=== PATIENT | male | born 1995 | race Caucasian/White ===

== ENCOUNTER 2017-03-26 11:38 | Inpatient (IN) ==
[2017-03-26 12:33] LABS: MANUAL DIFF NEEDED? NO
[2017-03-26 12:37] LABS: BASO% 0.4 % (0.0-0.8); EOS# 0.05 X1000 (0.0-0.7); EOS% 0.7 % (0.0-10.0); HEMATOCRIT 44.5 % (42.0-52.0); HEMOGLOBIN 15.6 g/dL (14.0-18.0); IMM GRAN# 0.03 X1000 (0.0-0.04); IMM GRAN% 0.4 % (0.0-0.5); LYMPH# 1.41 X1000 (1.2-3.4); MCH 30.2 PG (27-31); MCHC 35.1 g/dL (33-37); MCV 86.1 FL (81-99); MONO# 0.79 X1000 (0.11-0.59); MONO% 10.6 % (1.7-9.3); MPV 10.1 FL (7.4-10.4); NEUT% 68.9 % (42.2-75.2); PLT 230 X1000 (130-400); RBC 5.17 XMIL (4.7-6.1)
[2017-03-26 12:48] LABS: URINE CULTURE NEEDED? NO; URINE MICRO REVIEW NEEDED? NO; URINE SOURCE CLEAN CATCH
[2017-03-26 12:54] LABS: BILIRUBIN URINE NEGATIVE (NEGATIVE); BLOOD URINE NEGATIVE (NEGATIVE); COLOR YELLOW; GLUCOSE URINE NEGATIVE (NEGATIVE); LEUKOCYTES URINE NEGATIVE (NEGATIVE); NITRITE URINE NEGATIVE (NEGATIVE); PH URINE 8.5; PROTEIN URINE TRACE mg/dL (NEGATIVE); SP GRAVITY URINE 1.018; TURBIDITY URINE HAZY (CLEAR); UR EPITHELIAL CELLS <10 /HPF (<10); URINE BACTERIA NEGATIVE /HPF; URINE RBC <10 /HPF (<10); URINE WBC <10 /HPF (<10); UROBILINOGEN URINE 4 mg/dL (NORMAL)
--- NOTE | 2017-03-26 12:55 | Diag Imaging Result Doc PS360 ---
EXAM: FLAT/UPRIGHT ABD/1 VIEW CHEST HISTORY: abd pain TECHNIQUE: Flat and upright abdomen with PA chest COMMENT: There is gas in the colon. The small bowel and stomach are not distended. There is no evidence of abnormal calcification. The spleen is slightly enlarged measuring over 13 cm in superior-inferior dimension. Otherwise there is no evidence organomegaly or mass. The appearance of the chest is unremarkable. IMPRESSION: Borderline splenomegaly. Otherwise no evidence of acute disease. Electronically signed by Jose Ortiz 03/26/2017 12:53 PM
[2017-03-26 13:08] LABS: AGAP 10; ALBUMIN 4.4 g/dL (3.5-5.0); ALKALINE PHOSPHATASE 93 U/L (32-122); BUN 10 mg/dL (8-22); CALCIUM 9.3 mg/dL (8.8-10.2); CHLORIDE 91 mmol/L (98-107); COSMO 267; GOT 13 U/L (10-34); GPT 7 U/L (10-44); LIPASE 58 U/L (13-60); POTASSIUM 4.6 mmol/L (3.5-5.1); SODIUM 133 mmol/L (136-145); TCO2 32 mmol/L (25-35); TOTAL BILIRUBIN 0.34 mg/dL (0.20-1.00)
[2017-03-26] MEDS ORDERED: NS 1,000 ML IV ONE (13:14)
[2017-03-26 13:16] LABS: UR AMPHETAMINES MT NONE DETECTED (NONE DETECT); UR BARBITUATES MT NONE DETECTED (NONE DETECT); UR BENZODIAZ MT NONE DETECTED (NONE DETECT); UR CANNABIS MEDTOX NONE DETECTED (NONE DETECT); UR COCAINE MT NONE DETECTED (NONE DETECT); UR METHADONE MEDTOX NONE DETECTED (NONE DETECT); UR OPIATES MT NONE DETECTED (NONE DETECT); UR OXYCODONE MEDTOX NONE DETECTED (NONE DETECT); UR PCP MEDTOX NONE DETECTED (NONE DETECT)
[2017-03-26] MEDS ORDERED: ZOFRAN IV ONE (13:18)
[2017-03-26] MEDS ORDERED: MORPHINE IV ONE (13:18)
--- NOTE | 2017-03-26 14:24 | Diag Imaging Result Doc PS360 ---
EXAM: CT ABD/PELVIS W/ IV CONT ONLY HISTORY: abd pain TECHNIQUE: CT of the abdomen and pelvis with intravenous contrast and low-dose protocol. COMMENT: There are no previous studies. There are granulomata in the spleen. The adrenal glands and liver are unremarkable. The pancreas is within normal limits. There are no gallstones demonstrated. The kidneys are without evidence of hydronephrosis or mass. The left kidney is slightly atrophic in appearance. There is marked mucosal thickening in the stomach particularly the body and antrum. There is some radiopaque material present in the distal small bowel and colon of uncertain significance. No oral contrast was administered by history. The appendix is not demonstrated. There is no evidence of small bowel dilatation. Pelvis: There is free fluid in the rectovesical pouch. The regional skeleton appears to be intact. IMPRESSION: Severe gastritis. Free fluid. Possibility of previous appendectomy cannot be excluded. The findings were discussed with HOLLAND Moore at 03/26/2017 2:21 PM. Electronically signed by Jose Ortiz 03/26/2017 2:21 PM
[2017-03-26] MEDS ORDERED: ZOFRAN IV PRN (16:16)
[2017-03-26] MEDS ORDERED: SODIUM CHLORIDE 0.9% INJ SCH (16:30)
[2017-03-26] MEDS ORDERED: PROTONIX ONE (16:38)
[2017-03-26] MEDS ORDERED: CARAFATE LIQUID ONE (16:38)
[2017-03-26] MEDS ORDERED: OFIRMEV 1000 MG/ISOTONIC SOLN 1,000 MG/100 ML BOTTLE ONE (16:38)
[2017-03-26] MEDS: CARAFATE LIQUID PO SCH ×3 (16:45→23:00)
[2017-03-26] MEDS: OFIRMEV 1000 MG/ISOTONIC SOLN 1,000 MG/100 ML BOTTLE IV SCH ×2 (16:45→21:49)
[2017-03-26] MEDS: PROTONIX IV SCH (16:46)
[2017-03-26] MEDS: NS 1,000 ML IV SCH (17:30)
--- NOTE | 2017-03-26 19:21 | HISTORY AND PHYSICAL ---
PRIMARY CARE PROVIDER: No one. CHIEF COMPLAINT: Nausea, vomiting, and diarrhea, with left lower quadrant abdominal pain for 6 days. HISTORY OF PRESENT ILLNESS: Mr. Armando Colbert is a 21-year-old male, who has a medical history of asthma, methamphetamine and marijuana use, who states that apparently he had a very stressful event approximately a week ago and for the last 6 days he has had nausea, vomiting, and diarrhea with left lower quadrant abdominal pain. He states that his stools are black and runny. His last bowel movement was this morning and that his emesis is orange in color. He does have a subjective fever that he states got up to 101, along with chills. He has no other complaints at this time. Will admit to the medical floor, treating him with IV fluid hydration. He did have an abdominal CT which showed severe gastritis. Will add IV Protonix and liquid Carafate. Given his history of drug abuse, will only do IV Tylenol for now, as he is requesting for pain medications at this time. PAST MEDICAL HISTORY: Asthma and major depressive disorder. PAST SURGERY HISTORY: Appendectomy. No other surgeries. SOCIAL HISTORY: Smokes 1 pack per day. He states for the last 3 years of previous H P states that he has been smoking since age of 15. He denies any alcohol. He does state that he smokes marijuana daily, but his last time was approximately 1 week ago when he started feeling bad. He states that he uses methamphetamines, crystal meth, once a week, with the last time being 1-1/2 weeks ago. He lives with his stepmother and sisters any he does not work. FAMILY HISTORY: Has a mother with psychiatric disorder, who also had polysubstance abuse and apparently had due to drug overdose at the time he was age 18. REVIEW OF SYSTEMS: Fourteen point review of systems were complete and all were negative, except for those mentioned above in history of present illness. ALLERGIES: No known drug allergies. HOME MEDICATIONS: None. PHYSICAL EXAMINATION: VITAL SIGNS: Temperature 98.3 degrees, respiratory rate 16, blood pressure 138/ 78, heart rate 61, O2 saturation 99% on room air. GENERAL APPEARANCE: He is 6 feet, 1 inch, 170 pounds, BMI 22.4. GENERAL: Mr. Armando Colbert is a 21-year-old male, he is in no acute distress. He is able answer questions appropriately. HEENT: Atraumatic, normocephalic. Pupils equal, round, reactive to light. Extraocular movements intact. Mucous membranes are dry. NECK: No jugular venous distention or carotid bruits noted. CARDIOVASCULAR: S1, S2. Regular rate and rhythm. No rubs, gallops, or murmurs. PULMONARY: Clear to auscultate with bilateral breath sounds. No accessory muscle use or work of breathing noted. GASTROINTESTINAL: Soft. Positive bowel sounds x4. Tenderness to palpation in the left lower quadrant. Nondistended. EXTREMITIES: No edema noted. +2 dorsalis and radial pulses. NEUROLOGIC: Alert and oriented x4. Moves all extremities equally. SKIN: Warm, dry, and intact. LABORATORY DATA: The white blood cells 7000, hemoglobin 15, hematocrit 44, platelet count 230,000. Sodium 133, potassium 4.6. BUN 10, creatinine 0.9, glucose 122. Bilirubin 0.34, AST 13, ALT 7. Amylase 41, lipase 58. Urinalysis trace protein, 60 ketones, 4 urobilinogen; otherwise, negative. Urine drug screen negative. IMAGING: Abdominal x-ray borderline splenomegaly; otherwise no acute disease. Abdominal pelvic CT showed severe gastritis, free fluid. Possibility of previous appendectomy which cannot be excluded and he does have a history of an appendectomy. ASSESSMENT AND PLAN: 1. Intractable nausea and vomiting. Will do antiemetics. 2. Abdominal pain. There is severe gastritis with free fluid. Will do NPO, IV Protonix, Carafate, Tylenol IV for pain control, and antiemetics. If he is not improved, we may possibly consult GI tomorrow. There has been a Hemoccult ordered, but pending. White blood cell count is normal at this time. 3. History of asthma, stable. 4. Illicit drug use/abuse. Again, will only give IV Tylenol for now for pain control. 5. Tobacco abuse. Cessation discussed. 6. Deep venous thrombosis prophylaxis. SCDs. Dictated by CHRYSTAL Park for Bryon Jacobs MD Patient seen and examined. Agree with CHRYSTAL note. It reflects my assessment and plan. Patient being admitted for intractable nausea and vomiting most likely secondary to marijuana abuse with abdominal pain secondary to gastritis. Will start IV fluids, will monitor him closely in the hospital. Will resume diet tomorrow if he is feeling better. cc: CHRYSTAL Park MD MTDD
[2017-03-27] MEDS: CARAFATE LIQUID PO SCH ×2 (05:09→10:54)
[2017-03-27] MEDS: NS 1,000 ML IV SCH (05:09)
[2017-03-27] MEDS: OFIRMEV 1000 MG/ISOTONIC SOLN 1,000 MG/100 ML BOTTLE IV SCH ×2 (05:09→10:55)
[2017-03-27] MEDS: PROTONIX IV SCH (05:09)
[2017-03-27 06:37] LABS: MANUAL DIFF NEEDED? NO
[2017-03-27 06:45] LABS: BASO% 0.2 % (0.0-0.8); EOS# 0.13 X1000 (0.0-0.7); EOS% 1.5 % (0.0-10.0); HEMATOCRIT 39.2 % (42.0-52.0); HEMOGLOBIN 13.7 g/dL (14.0-18.0); LYMPH# 1.83 X1000 (1.2-3.4); LYMPH% 21.2 % (20.5-51.1); MCH 30.5 PG (27-31); MCHC 34.9 g/dL (33-37); MCV 87.3 FL (81-99); MONO# 0.71 X1000 (0.11-0.59); MONO% 8.2 % (1.7-9.3); MPV 10.1 FL (7.4-10.4); NEUT% 68.9 % (42.2-75.2); PLT 204 X1000 (130-400); RBC 4.49 XMIL (4.7-6.1)
[2017-03-27 06:52] LABS: AGAP 8; ALBUMIN 3.4 g/dL (3.5-5.0); ALKALINE PHOSPHATASE 73 U/L (32-122); BUN 7 mg/dL (8-22); CALCIUM 8.1 mg/dL (8.8-10.2); CHLORIDE 100 mmol/L (98-107); COSMO 274; GOT 10 U/L (10-34); GPT 6 U/L (10-44); MAGNESIUM 2.3 mg/dL (1.5-2.7); POTASSIUM 4.2 mmol/L (3.5-5.1); SODIUM 138 mmol/L (136-145); TCO2 30 mmol/L (25-35); TOTAL BILIRUBIN 0.25 mg/dL (0.20-1.00); TOTAL PROTEIN 5.7 g/dL (6.3-8.3)
[2017-03-27 13:19] VITALS: BP 125/67
--- NOTE | 2017-03-27 16:21 | DISCHARGE SUMMARY ---
ADMISSION DATE: 03/26/2017 DISCHARGE DATE: 03/27/2017 CONSULTATIONS: None. PERTINENT PROCEDURES: 1. Abdomen x-ray showed borderline splenomegaly. Otherwise, no acute disease. 2. Abdomen and pelvis CT showed severe gastritis, free fluid, possible previous appendectomy could not excluded. DISCHARGE DIAGNOSES: 1. Intractable nausea and vomiting, improved. 2. Abdominal pain. Severe gastritis was noted on CT scan. He was initially held in n.p.o., started on a Protonix, Carafate, IV Tylenol for pain control, and antiemetics. He improved and was requesting a regular diet. He has tolerated that and is being discharged home. White count has remained normal. Hemoccult stools positive, secondary to gastritis , stable. 3. History of asthma, stable. 4. Listed drug use/abuse. 5. Tobacco abuse. Cessation discussed. HOSPITAL COURSE: Mr. Armando Colbert is a 21-year-old, male. Past medical history of asthma, methamphetamine and marijuana use. He states he had a very stressful event approximately a week ago and, for the last 6 days, he has had nausea, vomiting and diarrhea, left lower quadrant abdominal pain, and that his stools are black and runny. His last bowel movement was on the morning of his admission, and that his emesis was orange in color. He had subjective fever that he stays was up to 101, along with chills. He was admitted to the medical floor , given IV hydration. Abdominal CT did show severe gastritis. He was started on IV PPI and liquid Carafate. Given his history of drug abuse, he was only given IV Tylenol and made n.p.o. He was requesting pain medications at the time of his admission. He was also placed on antiemetics. A do see noted in the nursing notes that he has had asked for food several times during last night's shift. His nausea and vomiting have resolved. He was started on a regular diet. He has tolerated that well. Dr. Luna discharged him home. VITAL SIGNS: Temperature is 98.3 degrees, heart rate 56, respirations 18, blood pressure 126/67, O2 is 100% on room air. DISCHARGE DIET: Regular. DISCHARGE MEDICATIONS: 1. Prilosec 20 mg, 2 tabs p.o. daily. 2. Carafate 1 g p.o. q.6 hours. FOLLOWUP: Mr. Colbert is being discharged home with his family. He will need to follow up with his primary care physician, as well as GI specialist. He can return to the ED for any worsening of symptoms. He also needs to follow GERD lifestyle changes. Continue smoking cessation. He can return to the ED for any worsening of symptoms. Discharge time: 35 minutes Dictated by CHRYSTAL Trevizo for Bryon Jacobs MD Patient seen and examined. Agree with APARTMENT COMMUNITY MANAGER note. It reflects my assessment and plan., Patient strongly advised to quite abusing drugs. Also explained that cycling vomiting he had is related to cannabinoids. . He also was explained the importance of taking Prilosec for 3 months. He acknowledged understanding cc: Bryon Jacobs MD [facility] CENTERLarissa
--- NOTE | 2017-03-29 13:56 | PROVIDER DOCUMENTATION ---
This chart was entered by Pollo Cherry Scribe, acting as scribe for Chyna Sy PA. HPI-Abdominal Pain/GI Problem - General Chief Complaint: Abdominal Pain Stated Complaint: abd pain and vomiting Time Seen by Provider: 03/26/17 12:15 Source: patient Allergies/Adverse Reactions: Patient Allergies Allergy/AdvReac Type Severity Reaction Status Date / Time No Known Allergies Allergy Verified 03/26/17 15:35 Home Medications: Home Medication List Medication Instructions Recorded Confirmed Last Taken Type Omeprazole 2 tab PO DAILY #60 tablet. 03/27/17 Unknown Rx Sucralfate [Carafate Liquid] 1 gm PO Q6H #120 udc 03/27/17 Unknown Rx - History of Present Illness-ABD Nature of Presenting Problems: Patient is a 21 y/o M that presents with 6 days of abdominal pain with n/v/d. Denies fever/chills. Reports generalized muscle aches. He is a IV drug user with last use 2 weeks ago per patient. He had a BM 24 hours ago in which stool was black in nature but patient has been taking Pepto Bismol. Abdominal Pain Onset Location: reports: LUQ, LLQ Quality of Pain: reports: aching, cramping Severity in ED: reports: moderate Onset/Duration: reports: gradual, 6 days ago Timing: reports: still present, constant Activities at Onset: reports: rest. denies: possible bad food Modifying Factors: improves with: nothing Associated Symptoms: reports: diarrhea, muscle aches, nausea, vomiting. denies : back/neck pain, chest pain, dizziness, EENT symptoms, fever/chills, genitourinary problems, shortness of breath Last BM: 24 hours ago Dark Stools Present?: reports: black (due to Pepto Bismol) Rectal Bleeding: reports: none Rectal Pain: reports: none Emesis Description: reports: clear Similar Symptoms Previously?: No Recently seen or treated by another doctor?: No Review of Systems - Adult - REVIEW OF SYSTEMS - ADULT Constitutional: denies: chills, fever Eyes: reports: no symptoms reported Ears, Nose, Mouth & Throat: denies: ear pain, sinus problem, throat pain, throat swelling Cardiovascular: denies: chest pain, palpitations, syncope Respiratory: denies: cough, shortness of breath, wheezing Gastrointestinal: reports: abdominal pain, diarrhea, nausea, vomiting. denies: hematemesis, constipation, rectal bleeding Genitourinary: denies: dysuria, frequency, hematuria Musculoskeletal: reports: muscle aches. denies: frequent leg cramps, joint swelling Integumentary: reports: no symptoms reported Neurological: reports: no symptoms reported Psychiatric: reports: no symptoms reported Endocrine: reports: no symptoms reported Hematologic/Lymphatic: reports: no symptoms reported Allergic/Immunologic: reports: no symptoms reported All Other Systems: Reviewed and Negative Past History - Adult - PAST MEDICAL HISTORY-ADULT Review of Records: reports: Old Records Reviewed, Nursing Assessment Review, Medications Reviewed Psychiatric: reports: depression - PRIOR SURGERIES/PROCEDURES Surgical/Procedure History: reports: appendectomy - IMMUNIZATION STATUS Childhood Immunizations: See Nurse Assessment Flu Vaccine: See Nurse Assessment - FAMILY HISTORY Family History: reviewed, not pertinent - SOCIAL HISTORY Smoking: cigarettes, less than 1 pack/day Substance Use: marijuana, other (ICE) Alcohol Use Frequency: occasionally Living Situation: family Physical Exam-General - PHYSICAL EXAM-ADULT Initial Vital Signs Reviewed: Yes - CONSTITUTIONAL General Appearance: alert, mild distress - EYES Eyes: PERRL/EOMI, pink conjunctivae - HEAD, EARS, NOSE, MOUTH & THROAT HENMT: normocephalic/atraumatic, moist mucous membranes, normal ENT inspection - NECK Neck: non-tender, full range of motion, normal inspection - RESPIRATORY Respiratory: lungs clear, normal breath sounds, no respiratory distress, no accessory muscle use - CARDIOVASCULAR Cardiovascular: regular rate, rhythm, no edema, no murmur - GASTROINTESTINAL (ABDOMEN) Abdominal Exam: normal bowel sounds, no organomegaly, no pulsatile mass, guarding (Left sided), tenderness (left sided). negative: McBurney's point tenderness, López's sign, obturator sign, psoas, Rovsing's sign - MUSCULOSKELETAL Back Exam: no CVA tenderness, no vertebral tenderness Extremity: normal range of motion, no pedal edema, no calf tenderness - SKIN Integumentary: normal color, warm/dry - NEUROLOGIC Neurologic: import export manager II-XII nml as tested, no motor/sensory deficits - PSYCHIATRIC Psych/Mental Status: normal mood/affect, normal thought content, normal thought process, oriented x 3 Progress - PLAN OF CARE/RESULTS Progress/Plan/Lab Results: Orders Category Date Time Status Saline Loc DIRECTED Care 03/26/17 12:16 Active NPO Diet 03/26/17 12:16 Active AMYLASE [CHEM] Stat Lab 03/26/17 12:16 Uncollected CBC WITH ELECTRONIC DIFF [HEME] Stat Lab 03/26/17 12:16 Uncollected COMPREHENSIVE METABOLIC PANEL [CHEM] Stat Lab 03/26/17 12:16 Uncollected LIPASE [CHEM] Stat Lab 03/26/17 12:16 Uncollected UDS [URINE DRUG SCREEN] Stat Lab 03/26/17 12:17 Uncollected URINALYSIS W/POSS RFLX CULT-1 [URINALYSIS] Stat Lab 03/26/17 12:16 Uncollected Result Diagrams: 03/27/17 06:28 03/27/17 06:28 - XRAY 1 XRAY Study: Chest, Abdomen Impression: See EMR Report (Borderline splenomegaly. Otherwise no evidence of acute disease. -per Dr. Ortiz) - CT/MRI 1 CT Study: Abdomen, Pelvis Impression: See EMR Report (Severe gastritis. Free fluid. Possibility of previous appendectomy cannot be excluded. The findings were discussed with HOLLAND Moore at 03/26/2017 2:21 PM[address] Ortiz.) - CONSULTS/PCP/HOSPITALIST Notification #1 *Consult/PCP/Hospitalist*: Dr. Jeremy Diana Time Discussed: 14:49 Reason/Comments: Severe gastritis Consult Disposition: Admit (for observation) Departure - Departure Date of Disposition Decision: 03/26/17 Time of Disposition Decision: 14:49 DIAGNOSIS: Gastritis Disposition: ADMITTED INPATIENT 09 Certified Medical Emergency: Emergent Condition: Stable - Critical Care Note This patient required my direct & personal management of CC.: No Attestation - Physician/ IQRA Attestation Patient care was provided by Advanced Practice Provider:: Yes Advanced Practice Provider:: Kayode Rivero Advanced Practice Provider documentation review:: The Mid-level provider documentation, treatment plan and medical decision making was reviewed by the physician who agrees with all treatment and medical decision making by the [facility]. The physician spent face to face time with patient:: Yes Advanced Practice Provider documentation review:: Supervising physician onsite and consulted in the evaluation and care of this patient. The physician did have a face to face encounter with the patient. This chart was documented by the indicated scribe, (Pollo Cherry, Oscariblyndon) and accurately reflects the services I performed and decisions made by me, Chyna Sy PA, as attested by the provider's signature.
== END 2017-03-27 15:23 | disposition home or self-care (01) ==
LOC: ED 11:38 → 3N 16:55
PROVIDERS: ATTEND Internal Medicine